=== PATIENT | female | born 1945 | race Caucasian/White ===

== ENCOUNTER → 2017-02-01 | Outpatient (CLI) | payer OTHER, BC ==
[~2017-02-01] MED LIST: AMLO-110 PO; CHOL100010 PO; FLV400 PO; MAGNESIUM PO; ZINC PO; [UNRECOGNIZED DRUG - OTHER] PO; cranberry PO
[2017-02-01 12:20] LABS: CHLORIDE 108 mmol/L (98-107); POTASSIUM 4.4 mmol/L (3.5-5.1); SODIUM 141 mmol/L (136-145)
[2017-02-01 12:57] LABS: ALT/SGPT 30 U/L (12-78); AST/SGOT 21 U/L (15-37); BLOOD UREA NITROGEN 21 mg/dl (7-18); BUN/CREATININE RATIO 19.2 (10-20); CALCIUM 9.2 mg/dl (8.5-10.1); CARBON DIOXIDE 28 mmol/L (21-32); CHOLESTEROL 247 mg/dl (0-200); CHOLESTEROL/HDL RATIO 4.1; GLUCOSE 111 mg/dl (70-99); HDL CHOLESTEROL 60 mg/dl; LDL CHOLESTEROL CALCULATED 150 mg/dl; TRIGLYCERIDES 184 mg/dl (0-150); VERY LOW DENSITY LIPOPROT CALC 37 mg/dl
[2017-02-01 13:10] LABS: ALKALINE PHOSPHATASE 68 U/L (45-117)
[2017-02-01 13:11] LABS: ESTIMATED AVERAGE GLUCOSE 111 mg/dl; HA1C FLAG Normal (Normal)
--- NOTE | 2017-02-07 08:48 | CODING QUERY MEDICAL NECESSITY ---
SUPPORTING DIAGNOSIS NEEDED Dr. Maldonado, A supporting diagnosis is required for the test/procedure performed on this patient in order for us to be reimbursed by the patient's insurance. Please provide a supporting diagnosis for the following test/procedure listed below next to the test name along with your signature. *If there is no additional diagnosis for this patient that would support the following test/procedure please document that below next to the test/procedure. Test(s)/Procedure(s) that require a supporting diagnosis: * ([id number]) VITAMIN D ASSAY DIAGNOSIS: * [id number] GLYCATED HEMOGLOBIN DIAGNOSIS: DATE OF SERVICE: 02/01/17 Provider Signature: Date: Thank you Alexandr Sotomayor Health Information Management Once completed, please kindly fax back to [phone] For questions please call [phone]
== END | disposition home or self-care (01) ==
LOC: C.LABBFT 08:55
PROVIDERS: ATTEND Internal Medicine
DX: M48.00 Spinal stenosis, site unspecified (principal); E55.9 Vitamin D deficiency, unspecified; R73.01 Impaired fasting glucose

== ENCOUNTER → 2017-03-10 | Outpatient (CLI) | payer OTHER, BC ==
--- NOTE | 2017-03-10 13:54 | MAMMOGRAPHY REPORT ---
BILATERAL DIGITAL SCREENING MAMMOGRAM WITH CAD: 03/10/2017 CLINICAL HISTORY: Routine screening. TECHNIQUE: Current study was also evaluated with a Computer Aided Detection (CAD) system. Bilateral CC and MLO views were obtained. COMPARISON: Comparison is made to exams dated: 10/27/2010 mammogram, 10/19/2009 mammogram - [facility], 10/17/2008, 07/04/2007, and 07/01/2005 mammogram - [facility]. BREAST COMPOSITION: There are scattered areas of fibroglandular density in both breasts. FINDINGS: No suspicious masses, calcifications, or areas of architectural distortion are noted in ei ther breast. There has been no significant interval change compared to prior exams. Scattered bilate ral benign-appearing calcifications are again noted. Asymmetry in the right medial posterior breast on the cc view is stable compared to prior exams. IMPRESSION: ACR BI-RADS CATEGORY 2: BENIGN There is no mammographic evidence of malignancy. A 1 year screening mammogram is recommended. The pa tient will receive written notification of the results. Approximately 10% of breast cancers are not detected with mammography. A negative mammographic report should not delay biopsy if a clinically suggestive mass is present. Elizabeth Rhodes M.D. ah/:03/10/2017 12:24:08 Document Design Specialist: Darin KIM(Melvi)(Samara), [facility] letter sent: Normal 1/2 BI-RADS Code: ACR BI-RADS Category 2: Benign
== END | disposition home or self-care (01) ==
LOC: C.MAMM 10:44
PROVIDERS: ATTEND Internal Medicine
DX: Z12.31 Encounter for screening mammogram for malignant neoplasm of breast (principal)

== ENCOUNTER → 2017-04-05 | Outpatient (CLI) | payer OTHER, BC ==
[2017-04-05 12:50] LABS: ALT/SGPT 33 U/L (12-78); AST/SGOT 20 U/L (15-37); BLOOD UREA NITROGEN 12 mg/dl (7-18); BUN/CREATININE RATIO 12.7 (10-20); CALCIUM 8.9 mg/dl (8.5-10.1); CARBON DIOXIDE 27 mmol/L (21-32); CHLORIDE 109 mmol/L (98-107); CHOLESTEROL 173 mg/dl (0-200); CREATININE 0.97 mg/dl (0.60-1.20); GLUCOSE 109 mg/dl (70-99); POTASSIUM 4.4 mmol/L (3.5-5.1); SODIUM 141 mmol/L (136-145)
[2017-04-05 12:51] LABS: ALKALINE PHOSPHATASE 66 U/L (45-117); HDL CHOLESTEROL 57 mg/dl; LDL CHOLESTEROL CALCULATED 89 mg/dl; TRIGLYCERIDES 137 mg/dl (0-150); VERY LOW DENSITY LIPOPROT CALC 27 mg/dl
== END | disposition home or self-care (01) ==
LOC: C.LABBFT 07:57
PROVIDERS: ATTEND Internal Medicine
DX: E78.5 Hyperlipidemia, unspecified (principal)

== ENCOUNTER → 2018-01-03 | Outpatient (CLI) | payer OTHER, BC ==
[2018-01-03 13:11] LABS: BASO % 0.3 %; BASO ABS # 0.02 K/uL (0-0.2); EOS % 1.5 %; EOS ABS # 0.11 K/uL (0-0.5); HEMATOCRIT 43.4 % (37-47); HEMOGLOBIN 15.1 g/dL (12.0-16.0); IG# 0.01 K/uL (0.00-0.02); LYMPH % 33.4 %; LYMPH ABS # 2.44 K/uL (1.2-3.4); MEAN CELL VOLUME 88.2 fL (80-100); MEAN CORPUSCULAR HEMOGLOBIN 30.7 pg (25-34); MEAN CORPUSCULAR HGB CONC 34.8 g/dl (32-36); MEAN PLATELET VOLUME 10.2 fL (7.4-10.4); MONO ABS # 0.51 K/uL (0.11-0.59); NEUT % 57.7 %; NEUT ABS # 4.21 K/uL (1.4-6.5); PLATELET COUNT 287 K/uL (130-400); RED CELL DISTRIBUTION WIDTH CV 12.9 % (11.5-14.5); RED CELL DISTRIBUTION WIDTH SD 41.5 fL (36.4-46.3)
[2018-01-03 13:25] LABS: BLOOD UREA NITROGEN 17 mg/dl (7-18); CALCIUM 9.2 mg/dl (8.5-10.1); CARBON DIOXIDE 27 mmol/L (21-32); CREATININE 0.98 mg/dl (0.60-1.20); GLUCOSE 99 mg/dl (70-99); POTASSIUM 4.4 mmol/L (3.5-5.1); SODIUM 138 mmol/L (136-145)
== END | disposition home or self-care (01) ==
LOC: C.LABBC 11:50
PROVIDERS: ATTEND Physician Assistant Medical
DX: R00.1 Bradycardia, unspecified (principal); I10 Essential (primary) hypertension; E55.9 Vitamin D deficiency, unspecified

== ENCOUNTER → 2018-02-05 | Outpatient (CLI) | payer OTHER, BC ==
[2018-02-05 12:38] LABS: HEMOGLOBIN A1C 5.6 % (4.5-5.6)
[2018-02-05 12:40] LABS: ALBUMIN 3.6 gm/dl (3.4-5.0); ALT/SGPT 45 U/L (12-78); AST/SGOT 34 U/L (15-37); BLOOD UREA NITROGEN 18 mg/dl (7-18); CALCIUM 8.6 mg/dl (8.5-10.1); CARBON DIOXIDE 27 mmol/L (21-32); GLUCOSE 109 mg/dl (70-99); POTASSIUM 4.2 mmol/L (3.5-5.1); SODIUM 139 mmol/L (136-145)
[2018-02-05 12:52] LABS: ALKALINE PHOSPHATASE 71 U/L (45-117); CHOLESTEROL 162 mg/dl (0-200); LDL CHOLESTEROL CALCULATED 82 mg/dl; TOTAL PROTEIN 7.5 gm/dl (6.4-8.2)
== END | disposition home or self-care (01) ==
LOC: C.LABBFT 07:43
PROVIDERS: ATTEND Internal Medicine
DX: E55.9 Vitamin D deficiency, unspecified (principal); E78.5 Hyperlipidemia, unspecified; K76.0 Fatty (change of) liver, not elsewhere classified; R73.01 Impaired fasting glucose; I10 Essential (primary) hypertension

== ENCOUNTER 2024-03-21 04:40 | Inpatient (IN) ==
--- NOTE | 2024-03-21 04:49 | Emergency Department Note ---
History of Present Illness General Chief complaint: Fall Stated complaint: FALL History of Present Illness This 78-year-old female presents to the ER for mechanical fall. Patient tripped over the dog and landed on her back. Patient complains of low back pain. Patient denies head injury, neck pain, chest pain, dyspnea, abdominal pain, numbness, tingling, localized weakness, arm pain or leg pain. No other concerns per patient. No blood thinners. Home Medications Medication Instructions Recorded Confirmed Type cholecalciferol (vitamin D3) 125 5,000 units PO DAILY 08/06/19 03/21/24 History mcg (5,000 unit) tablet methylcellulose (with sugar) oral 1 tbs PO DAILY 08/06/19 03/21/24 History powder (Citrucel (sucrose) oral powder) polyethylene glycol 3350 17 gram 17 gm PO DAILY 08/06/19 03/21/24 History oral powder packet (Miralax) amlodipine 5 mg tablet 5 mg PO DAILY #90 tabs 11/22/23 03/21/24 Rx Allergies Allergy/AdvReac Type Severity Reaction Status Date / Time almond Allergy Severe THROAT Verified 11/14/23 13:34 CLOSES COVID-19 (SARS-CoV-2) Allergy Severe Verified 11/14/23 13:34 vaccine, alexis Iodinated Contrast Media Allergy Severe THROAT Verified 11/14/23 13:34 CLOSES Penicillins Allergy Intermediate Hives Verified 11/14/23 13:34 Sulfa (Sulfonamide Allergy Intermediate Hives Verified 11/14/23 13:34 Antibiotics) ciprofloxacin Allergy Unknown CAN'T Verified 11/14/23 13:34 REMEMBER ramipril Allergy Unknown CAN'T Verified 11/14/23 13:34 REMEMBER alendronate sodium AdvReac Intermediate abdominal Verified 11/14/23 13:34 pain, fever, [place] escitalopram [From Lexapro] AdvReac Intermediate INVOLUNTARY Verified 11/14/23 13:34 MUSCLE SPASMS losartan AdvReac Intermediate GI upset Verified 11/14/23 13:34 Kxyjknt-KBN-UvU Reductase AdvReac Intermediate MUSCLE Verified 11/14/23 13:34 Inhibitor PAIN/CRAMPS [Khweknx-Dem-Rge Reductase Inhibitor] SC[place]CH P[place] SAP Allergy Intermediate SWELLING Uncoded 11/14/23 13:34 AT SITE OF PINE NEEDLE PRICK. covid vaccines AdvReac Severe Uncoded 11/14/23 13:34 Past Med/Surg History Problem List (Updated 03/21/24 @ 18:44 by Dimitry Lopez) Ambulatory dysfunction Closed L2 vertebral fracture (Acute ~03/21/24) From a fall Acute low back pain (Acute) Fall (Acute) Closed L2 vertebral fracture (Acute 03/21/24) from a fall Hypertriglyceridemia Mild tricuspid regurgitation Mild mitral regurgitation Sinus bradycardia Premature supraventricular beats PVC (premature ventricular contraction) Oral alendronate causing adverse effect in therapeutic use History of colon polyps Osteoporosis, unspecified HTN (hypertension) (Chronic) Hyperlipidemia (Chronic) Impaired fasting glucose (Chronic) Irritable bowel syndrome with constipation (Chronic) Vitamin D insufficiency (Chronic) Osteoarthritis of right knee Plica syndrome of knee Adult situational stress disorder Medical History Nonsustained supraventricular tachycardia Benign colonic polyp Gallbladder polyp Mitral valve prolapse syndrome Rosacea Spinal stenosis Nonalcoholic fatty liver disease Mitral valve disorder History of femur fracture History of endometrial biopsy Surgical History History of reduction of open fracture History of colonoscopy History of section Family History Father Coronary heart disease Brother Dyslipidemia Prostate cancer Supraventricular tachycardia Denies family history of Ovarian cancer Myocardial infarction Breast cancer Lung cancer Colorectal cancer Social History Smoking Status: Never smoker Second Hand Exposure: Yes; Do You Dip or Chew Tobacco: No; Hx Alcohol Use: No Hx Substance Use: No Preferred Language: Australian Communication Ability: Effective Visual Impairment: Limited Hearing Ability: Normal [place] Required: No Beliefs That Will Affect Care: None marital status: Current Living Situation: Family current occupational status: retired How many Children do You have: 2 Other Information That Helps Us Care for You: No Feels Safe at Home: Yes Childhood Exposure to Second-Hand Smoke: Yes caffeine: Yes Dental Care, Regularly: Yes Physical Activity Frequency: 3-4 Times per Week Seatbelt Use: always Sunscreen Use: No Assistive Devices: Glasses Review of Systems A total of 10 systems reviewed and were otherwise negative Physical Exam Vital Signs Vital Signs - 24 hr 03/21/24 04:47 03/21/24 05:56 03/21/24 10:45 Temperature 36.4 C L Temperature Source Oral Oral Pulse Rate 53 L Pulse Rate [Left Finger] 55 L 57 L Respiratory Rate 18 18 16 Respiratory Effort / Characteristics Non-Labored Spontaneous Non-Labored Spontaneous Non-Labored Spontaneous Respiratory Depth Normal Normal Normal Respiratory Pattern Regular Regular Regular Blood Pressure 174/91 H Blood Pressure [Right Arm] 152/82 H 172/74 H Blood Pressure Mean 118 Blood Pressure Mean [Right Arm] 105 106 Blood Pressure Position Lying Blood Pressure Position [Right Arm] Lying Pulse Oximetry 99 97 94 Oxygen Delivery Method Room Air Room Air Room Air Sepsis Recent Fever Within 48 Hours No Sepsis New/Unexplained Change in Mental Status N/A Sepsis Action Taken by Nursing No Action Required 03/21/24 12:00 03/21/24 14:00 Temperature Temperature Source Pulse Rate Pulse Rate [Left Finger] 50 L 57 L Respiratory Rate 16 16 Respiratory Effort / Characteristics Non-Labored Spontaneous Non-Labored Spontaneous Respiratory Depth Normal Normal Respiratory Pattern Regular Regular Blood Pressure Blood Pressure [Right Arm] 125/65 156/87 H Blood Pressure Mean Blood Pressure Mean [Right Arm] 85 110 Blood Pressure Position Blood Pressure Position [Right Arm] Pulse Oximetry 93 92 Oxygen Delivery Method Room Air Room Air Sepsis Recent Fever Within 48 Hours Sepsis New/Unexplained Change in Mental Status Sepsis Action Taken by Nursing PHYSICAL EXAM: VITALS: Vitals are noted on the nurse's note and reviewed by myself. Vital signs stable. GENERAL: Pleasant elderly female, in no acute distress, nondiaphoretic, well- developed well-nourished. SKIN: The skin was without obvious lacerations or abrasions. Capillary reflex less than 2 seconds. HEAD: Normocephalic atraumatic. EARS: External auditory canals clear, tympanic membranes pearly [place] without erythema or effusion bilaterally. No hemotympanums. No anderson sign. No mastoid tenderness. EYES: Pupils equal round and reactive to light and accommodation. Conjunctivae without injection, sclerae without icterus. Extraocular movements intact. NOSE: Patent, turbinates without inflammation or discharge. MOUTH: Mucous membranes moist. Pharynx without erythema or exudate. Uvula midline. Airway patent. Tongue does not deviate. NECK: Supple without nuchal rigidity. Cervical spine is nontender. Full range of motion of the neck without tenderness. No JVD. HEART: Regular rate and rhythm LUNGS: Clear to auscultation bilaterally without wheezes, rales or rhonchi. No dullness to percussion. No retractions or accessory muscle use. No chest wall tenderness. ABDOMEN: Positive bowel sounds x 4. Normal tympanic percussion. Soft, nontender, without masses or organomegaly. No guarding or rebound tenderness. MUSCULOSKELETAL: No tenderness of the thoracic spine tenderness. Mid lumbar tenderness without step-offs. No tenderness with pelvic rocking. Full range of motion without tenderness to palpation in all extremities. Strength 5/5 throughout. NEURO: Patient was alert and oriented to person place and time. Normal sensation to light and sharp touch. No focal neurological deficits. Course Administered Medications Acetaminophen (Acetaminophen 500 Mg Tab) 1,000 mg PO Q8H PADDY Stop: 04/20/24 22:29 Last Admin: 03/21/24 21:33 Dose: 1,000 mg Documented By: DANK Lactated Ringer's (Lr) 1,000 mls @ 100 mls/hr IV .Q10H PADDY Stop: 03/22/24 10:59 Last Admin: 03/21/24 15:05 Dose: 100 mls/hr Documented By: VICKIE Miscellaneous (Remove Lidoderm Patch) 1 each N/A DAILY@2100 PADDY Stop: 04/20/24 20:59 Last Admin: 03/21/24 21:33 Dose: 1 each Documented By: DANK Discontinued Medications Acetaminophen (Acetaminophen 500 Mg Tab) 1,000 mg PO NOW STA Stop: 03/21/24 04:44 Last Admin: 03/21/24 05:07 Dose: 1,000 mg Documented By: Acetaminophen (Acetaminophen 500 Mg Tab) 1,000 mg PO Q8H PADDY Stop: 04/20/24 12:59 Last Admin: 03/21/24 14:08 Dose: Not Given Documented By: VICKIE Hydromorphone HCl (Hydromorphone Inj 0.5 Mg/0.5 Ml Syr) 0.5 mg IV NOW STA Stop: 03/21/24 15:22 Last Admin: 03/21/24 16:21 Dose: 0.5 mg Documented By: VICKIE Acetaminophen (Ofirmev) 1,000 mg in 100 mls @ 400 mls/hr IV NOW STA Stop: 03/21/24 15:18 Last Infusion: 03/21/24 15:33 Dose: Infused Documented By: Admin: 03/21/24 15:18 Dose: 400 mls/hr Documented By: VICKIE Ketorolac Tromethamine (Ketorolac Tromethamine 60 Mg/2 Ml Vial) 30 mg IM NOW STA Stop: 03/21/24 05:45 Last Admin: 03/21/24 05:51 Dose: 30 mg Documented By: Lidocaine (Lidocaine 5% 1 Patch) 1 patch TD NOW STA Stop: 03/21/24 14:56 Last Admin: 03/21/24 18:51 Dose: 1 patch Documented By: PAUL Lidocaine (Lidocaine 5% 1 Patch) Confirm Administered Dose 1 patch TD .STK-MED ONE Stop: 03/21/24 15:02 Last Admin: 03/21/24 15:13 Dose: Not Given Documented By: VICKIE Ondansetron HCl (Ondansetron Inj 2 Mg/Ml 2 Ml Vial) 4 mg IV NOW STA Stop: 03/21/24 18:50 Last Admin: 03/21/24 19:39 Dose: 4 mg Documented By: DANK Oxycodone HCl (Oxycodone Hcl Soln 5 Mg/5 Ml Udc) 5 mg PO NOW STA Stop: 03/21/24 05:16 Last Admin: 03/21/24 05:30 Dose: 5 mg Documented By: Medical Decision Making Medical Records Attestation: I reviewed the patient's medical records. Home Medications Current Medication List: was personally reviewed by me Laboratory Data 03/21/24 15:05 03/21/24 15:05 Lab Results 03/21/24 Range/Units 15:05 WBC 10.74 (4.8-10.8) K/ul RBC 4.71 (4.20-5.40) M/uL Hgb 14.2 (12.0-16.0) g/dl Hct 41.2 (37.0-47.0) % MCV 87.5 (80.0-100.0) fL MCH 30.1 (25.0-34.0) pg MCHC 34.5 (32.0-36.0) g/dL RDW Std Deviation 39.6 (36.4-46.3) fL RDW Coeff of Cheryl 12.3 (11.5-14.5) % Plt Count 246 (130-400) K/uL MPV 9.9 (9.4-12.4) fL Immature Gran % (Auto) 1.3 % Neut % (Auto) 78.0 % Lymph % (Auto) 16.3 % [place] % (Auto) 3.9 % Eos % (Auto) 0.3 % Baso % (Auto) 0.2 % Neut # (Auto) 8.38 H (1.40-6.50) K/uL Lymph # (Auto) 1.75 (1.20-3.40) K/uL [place] # (Auto) 0.42 (0.11-0.59) K/uL Eos # (Auto) 0.03 (0.00-0.50) K/uL Baso # (Auto) 0.02 (0.00-0.20) K/uL Immature Gran # (Auto) 0.14 (0.01-0.20) K/uL Sodium 138 (136-145) mmol/L Potassium 3.9 (3.5-5.1) mmol/L Chloride 105 (98-107) mmol/L Carbon Dioxide 26 (21-32) mmol/L Anion Gap 7 (3-11) BUN 13 (6-23) mg/dl Creatinine 0.80 (0.6-1.2) mg/dl Est Cr Clr Drug Dosing 59.7 ml/min Est GFR ( Amer) 80.7 ml/min Est GFR (Non-Af Amer) 69.6 ml/min BUN/Creatinine Ratio 16.3 (10-20) Glucose 104 H (70-99(Fasting)) mg/dl Calcium 9.3 (8.6-10.3) mg/dl Total Bilirubin 1.0 (0.2-1.0) mg/dl AST 25 (13-39) U/L ALT 17 (7-52) U/L Alkaline Phosphatase 76 (34-104) U/L Total Protein 6.9 (6.0-8.3) gm/dl Albumin 4.2 (3.4-5.0) gm/dl Globulin 2.7 (2.5-4.0) gm/dl Albumin/Globulin Ratio 1.6 (0.9-2) Imaging Data Attestation: I personally reviewed and interpreted this imaging study as follows: Radiologist's Impression: Lumbar Spine MRI 03/21/24 15:39 MRI OF THE LUMBAR SPINE WITHOUT IV CONTRAST CLINICAL HISTORY: L2 fracture. Low back pain. COMPARISON STUDY: CT of the lumbar spine was performed on the same day 03/21/2024. TECHNIQUE: MRI of the lumbar spine is performed utilizing various T1 and T2- weighted sequences in the axial and sagittal planes. IV contrast was not administered for this examination. The examination is modestly degraded by motion artifact. FINDINGS: Lumbar spine: Marrow signal intensity is heterogeneous. There is an acute horizontally-oriented fracture through the body of L2 with corresponding marrow edema. There is only minimal loss of height. No retropulsed fragments are identified. Fracture does not clearly involve the posterior cortex or posterior elements. No additional acute fracture is seen involving the lumbar spine. Vertebral body height is otherwise maintained. Alignment is preserved. Anterior and lateral marginal osteophytes are seen throughout. The transverse and spinous processes appear intact. There is no evidence of spondylolysis. Chronic degenerative endplate change is seen at all lumbar levels. There is minimal endplate edema at L3-L4 and L4-L5. No destructive bony lesion is identified. Intravertebral discs: Disc desiccation and loss of height is seen throughout the lumbar spine. Loss of height is moderate at L4-L5 and mild at the remaining lumbar levels. Spinal cord: The visualized spinal cord is normal in morphology and signal intensity. The conus medullaris terminates at the level of T12. The nerve roots of the cauda equina are normal in morphology. L1-L2: There is broad-based posterior disc bulge with annular fissure. This abuts the transiting nerve roots. No significant central canal stenosis is seen. Lateral disc bulge contributes to mild bilateral symmetrical reticular stenosis. In conjunction with facet arthropathy, there is mild left neural foraminal stenosis. The right neural foramen is patent. L2-L3: The central canal is clear. Mild facet arthropathy is of no consequence. The neural foramina are patent. L3-L4: There is minimal posterior disc bulge, which abuts the transiting nerve roots. In conjunction with hypertrophy of the ligamentum flavum, there is mild acquired compromise of the central canal at this level with a minimal AP diameter of 6.5 mm. Lateral disc bulge contributes to bilateral subarticular stenosis and may abut the exiting bilateral L3 nerve roots. In conjunction with facet arthropathy, there is [id number] left neural foraminal stenosis. The right neural foramen is patent. L4-L5: There is broad-based posterior disc bulge with annular fissure. This abuts the transiting nerve roots. There is no significant acquired compromise of the central canal. Lateral disc bulge contributes to bilateral subarticular stenosis and may abut the exiting bilateral L4 nerve roots. In conjunction with facet arthropathy, there is mild right neural foraminal stenosis. Left neural foramen is patent. L5-S1: The central canal is clear. Facet arthropathy is of no consequence. The neural foramina are patent. Sacrum: The visualized sacrum is normal in morphology and signal intensity. Soft tissues: There is mild fatty atrophy of the paraspinous musculature. 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 The retroperitoneal structures are otherwise grossly unremarkable but incompletely evaluated. IMPRESSION: 1. Acute fracture of the L2 vertebral body as above. There is only minimal loss of height, with no clear involvement of the posterior cortex or the posterior elements. There is no retropulsion of fragments. 2. No additional acute fracture is seen. 3. Degenerative disc disease and spondylotic change as above. See discussion for detailed level by level analysis. 4. Additional findings as above. Electronically signed by: Uday Castanon M.D. 03/21/2024 6:56 PM MDM Narrative Prior records/ancillary studies reviewed. Triage Nursing notes reviewed. Additional history obtained from EMS. The patient's history was concerning for traumatic injury Differential diagnosis: Etiologies such as fracture, dislocation, intra-abdominal, pneumothorax, intrathoracic , intracranial, neurologic, as well as other traumatic pathologies were entertained. Physical examination findings: As above. The patients vitals were stable. ER treatment provided: Tylenol p.o., oxycodone, Toradol An order was placed for continuous cardiac monitoring. The monitor shows a rate of 50-100 with a sinus rhythm per my interpretation. On reassessment the patient felt better. Vital signs were stable. Diagnostic interpretation by me: Imaging studies: Imaging as above Consultation: A consultation was placed with hospitalist. The case was discussed and diagnostics were reviewed. The patient was admitted to their service for pain management. This appears to be consistent with fall with nondisplaced L2 fracture. Patient still moderate amount of pain. Medicine was consulted and the case discussed. She will be admitted to the medical service for further evaluation and workup. By the evaluation outlined above emergent etiologies such as dislocation, intra-abdominal, pneumothorax, pulmonary contusion, hemothorax, intracranial, neurologic,as well as others were deemed relatively unlikely. The pt informed about the findings as listed above. All questions were answered and pleased with the treatment. The chart was completed utilizing [employer] Speech voice recognition software. Grammatical errors, random word insertions, pronoun errors, and incomplete sentences are an occassional consequence of this system due to software limitations, ambient noise, and hardware issues. Any formal questions or concerns about the content, text, or information contained within the body of this dictation should be directly addressed to the physician social work assistant for clarification. Attending Attestation: I Elie Diaz MD I have reviewed the advanced practitioner's documentation and agree with the plan of care. I accept the responsibility for the associated risk of managing the patient. Ct imaging reviewed; given pain levels hospitalist team has been contacted. Impression & Plan Closed L2 vertebral fracture, Fall, Acute low back pain Discharge Plan Visit Data Chief Complaint: Fall Stated Complaint: FALL ED Provider: Elie Diaz ED Midlevel Provider: Christen Sumner Discharge Problem: Closed L2 vertebral fracture, Fall, Acute low back pain Patient Disposition: Admitted As Inpatient Condition: Good Discharge Problem: Closed L2 vertebral fracture Qualifiers: Encounter type: initial encounter Fracture morphology: unspecified fracture morphology Qualified Code(s): S32.029A - Unspecified fracture of second lumbar vertebra, initial encounter for closed fracture
[2024-03-21] MEDS: ACETAMINOPHEN 500 MG TAB PO STA (05:07)
[2024-03-21] MEDS: oxyCODONE HCL SOLN 5 MG/5 ML UDC PO STA (05:30)
--- NOTE | 2024-03-21 05:32 | CT Scan Report ---
Exam(s): CT HEAD Without Contrast EXAM: CT Head Without Intravenous Contrast CLINICAL HISTORY: Reason for exam: fall, pain. TECHNIQUE: Axial computed tomography images of the head/brain without intravenous contrast. CTDI is 39.4 mGy and DLP is 3285.17 mGy-cm. Automated exposure control was utilized for the study. A dose lowering technique was utilized adhering to the principles of ALARA. COMPARISON: No relevant prior studies available. FINDINGS: Brain: There are a few areas of decreased attenuation in the deep cerebral white matter consistent with mild small vessel ischemic/degenerative changes. No hemorrhage. Ventricles: Unremarkable. No ventriculomegaly. Bones/joints: Unremarkable. No acute fracture. Soft tissues: Unremarkable. Sinuses: Unremarkable as visualized. No acute sinusitis. Mastoid air cells: Unremarkable as visualized. No mastoid effusion. IMPRESSION: No acute findings in the head/brain. Electronically signed by: Fer Sanchez MD 03/21/24 05:31 AM
--- NOTE | 2024-03-21 05:34 | CT Scan Report ---
Exam(s): CT C SPINE EXAM: CT Cervical Spine Without Intravenous Contrast CLINICAL HISTORY: Reason for exam: fall, pain. TECHNIQUE: Axial computed tomography images of the cervical spine without intravenous contrast. CTDI is 36.79 mGy and DLP is 3285.17 mGy-cm. Automated exposure control was utilized for the study. A dose lowering technique was utilized adhering to the principles of ALARA. COMPARISON: No relevant prior studies available. FINDINGS: Vertebrae: Multilevel spondylotic change with multilevel disc space narrowing. No critical central canal or foraminal stenosis. No cervical spine fracture or focal subluxation is visualized. Discs/spinal canal/neural foramina: See above. Soft tissues: Unremarkable. IMPRESSION: 1. Multilevel spondylotic change with multilevel disc space narrowing. No critical central canal or foraminal stenosis. 2. No cervical spine fracture or focal subluxation is visualized. Electronically signed by: Fer Sanchez MD 03/21/24 05:33 AM
--- NOTE | 2024-03-21 05:37 | CT Scan Report ---
Exam(s): CT T SPINE EXAM: CT Thoracic Spine Without Intravenous Contrast CLINICAL HISTORY: Reason for exam: fall, pain. TECHNIQUE: Axial computed tomography images of the thoracic spine without intravenous contrast. CTDI is 39.4 mGy and DLP is 0.17 mGy-cm. Automated exposure control was utilized for the study. A dose lowering technique was utilized adhering to the principles of ALARA. COMPARISON: No relevant prior studies available. FINDINGS: Vertebrae: Generalized osteopenia and ankylosing spondylitis. No thoracic spine fracture or focal subluxation. Mild thoracic spine dextroscoliosis. Discs/spinal canal/neural foramina: No acute findings. No spinal canal stenosis. Soft tissues: Unremarkable. Thyroid: 10 mm low-density right thyroid nodule incidentally demonstrated. No further follow-up is recommended. IMPRESSION: 1. No thoracic spine fracture or focal subluxation. 2. Generalized osteopenia and ankylosing spondylitis. Electronically signed by: Fer Sanchez MD 03/21/24 05:36 AM
--- NOTE | 2024-03-21 05:41 | CT Scan Report ---
Exam(s): CT L SPINE EXAM: CT Lumbar Spine Without Intravenous Contrast CLINICAL HISTORY: Reason for exam: fall, pain. TECHNIQUE: Axial computed tomography images of the lumbar spine without intravenous contrast. CTDI is 39.4 mGy and DLP is 3285.17 mGy-cm. Automated exposure control was utilized for the study. A dose lowering technique was utilized adhering to the principles of ALARA. COMPARISON: No relevant prior studies available. FINDINGS: Vertebrae: Nondisplaced fracture through the L2 vertebral body is suspected. Recommend further correlation with MRI examination. There is no focal subluxation. Generalized osteopenia. Discs/spinal canal/neural foramina: Severe L4-5 and moderate L5-S1 disc space narrowing. No critical central canal or foraminal stenosis is identified. Soft tissues: Unremarkable. 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 There is also bilateral renal scarring. IMPRESSION: Nondisplaced fracture through the L2 vertebral body is suspected. Recommend further correlation with MRI examination. There is no focal subluxation. Communications: Verify Receipt Electronically signed by: Fer Sanchez MD 03/21/24 05:40 AM
[2024-03-21] MEDS: KETOROLAC TROMETHAMINE 60 MG/2 ML VIAL IM STA (05:51)
[2024-03-21] MEDS ORDERED: oxyCODONE HCL IR 5 MG TAB (IMMEDIATE RELEASE) PO PRN ×3 (06:46→18:49)
[2024-03-21] MEDS ORDERED: POLYETHYLENE (MIRALAX) 17 GM PACK PO PRN (06:46)
[2024-03-21] MEDS: ACETAMINOPHEN 500 MG TAB PO SCH ×2 (14:08→21:33)
--- NOTE | 2024-03-21 14:11 | History & Physical Report ---
Date of Service March 21, 2024 Assessment & Plan (1) Closed L2 vertebral fracture: Plan: Patient sustained a mechanical fall down one step on the morning of 03/21; no head strike; no LOC Head CT without acute abnormality Cervical spine CT without acute fracture or subluxation Thoracic spine CT without acute fracture or subluxation Lumbar spine CT revealed a suspected nondisplaced fracture through the L2 vertebrae Lumbar spine MRI w/o contrast ordered to correlate; if pathological fracture, recommend repeating MRI w/ contrast Multimodal pain regimen: Acetaminophen 1000mg p.o. scheduled q8h Dilaudid 0.5 mg IV q4h as needed for breakthrough pain 46 Dilaudid 1.0 mg IV q4h as needed for breakthrough pain 7-10 Miacalcin NS daily Daily lidocaine patch Heat application with K-pad as needed Can consider adding TLSO brace (pending MRI) Orthopedics consulted, however recommended that the patient be seen by ortho- spine (no coverage this week) Case management consulted for discharge planning as patient will likely require rehab A.m. CBC, BMP (2) Ambulatory dysfunction: Plan: Secondary to #1 PT/OT evaluations appreciated Fall precautions (3) Acute low back pain: Plan: Pain management (as above) (4) HTN (hypertension): Plan: Continue amlodipine daily (5) Fall: Plan Disposition: Admit to [facility] Full code Regular diet VTE PPx: SCDs; hold chemical DVT PPx for 24 hours in the setting of acute fall/ trauma History of Present Illness Chief Complaint: Fall, lower back pain Primary Care Provider: Alexandr Damian DO Patricia is an 78-year-old female with PMH of IBS, HLD, HTN, osteoporosis, adult situational stress disorder, and vitamin D deficiency. Patient presented on the morning of 03/21 after tripping on a step around 4 AM. She struck her hip on a ceramic tile, and endorsed severe lower back pain 10/10 immediately after falling. No head strike. No LOC. Patient was on the ground for approximately 15 minutes prior to EMS arrival. Patient did not take any medications prior to coming into the hospital; no morning medications. She denies any recent falls, or injury/trauma to the back/abdomen/pelvis. She was not feeling dizzy or lightheaded prior to fall. At time of admission, she does endorse 5/10 lower back pain, which he characterizes as a sharp, burning pain. The pain is constant and exacerbated with movements. No radiation down the legs. No numbness or tingling in the lower extremities. Patient denies saddle anest hesia. She reports that as long as she stays supine, the pain is tolerable. She reports that she is able to wiggle her toes, plantar/dorsiflex ankles, and bend the knees bilaterally. No loss of sensation or function of the lower extremities. No sick contacts. She does not use supplemental oxygen at baseline. Patient denies smoking, tobacco use, and recent alcohol use. Patient's son (Uday) is present at the bedside and provides additional history. She is bradycardic around 50 bpm at time of admission; vitals otherwise stable. ED course: Toradol 30 mg IM Oxycodone 10 mg p.o. Acetaminophen 1000 mg p.o. ROS: Patient endorses severe lower back pain that is exacerbated by movements, as well as nausea. Patient denies fever, chills, night-sweats, dizziness/lightheadedness prior to fall, headache, chest pain, chest pressure, chest palpitations, SOB, pleuritic CP, cough, abdominal pain, vomiting, diarrhea, change in urinary bowel habits, burning with urination, blood in the urine or stool, saddle anesthesia, or numbness/tingling/pain in the lower extremities. Allergies Allergy/AdvReac Type Severity Reaction Status Date / Time almond Allergy Severe THROAT Verified 11/14/23 13:34 CLOSES COVID-19 (SARS-CoV-2) Allergy Severe Verified 11/14/23 13:34 vaccine, alexis Iodinated Contrast Media Allergy Severe THROAT Verified 11/14/23 13:34 CLOSES Penicillins Allergy Intermediate Hives Verified 11/14/23 13:34 Sulfa (Sulfonamide Allergy Intermediate Hives Verified 11/14/23 13:34 Antibiotics) ciprofloxacin Allergy Unknown CAN'T Verified 11/14/23 13:34 REMEMBER ramipril Allergy Unknown CAN'T Verified 11/14/23 13:34 REMEMBER alendronate sodium AdvReac Intermediate abdominal Verified 11/14/23 13:34 pain, fever, [place] escitalopram [From Lexapro] AdvReac Intermediate INVOLUNTARY Verified 11/14/23 13:34 MUSCLE SPASMS losartan AdvReac Intermediate GI upset Verified 11/14/23 13:34 Hdxnobt-FOA-KqH Reductase AdvReac Intermediate MUSCLE Verified 11/14/23 13:34 Inhibitor PAIN/CRAMPS [Mlceahk-Cgn-Fcg Reductase Inhibitor] SCOTCH PINE SAP Allergy Intermediate SWELLING Uncoded 11/14/23 13:34 AT SITE OF PINE NEEDLE PRICK. covid vaccines AdvReac Severe Uncoded 11/14/23 13:34 Home Medications Medication Instructions Recorded Confirmed Type cholecalciferol (vitamin D3) 125 5,000 units PO DAILY 08/06/19 03/21/24 History mcg (5,000 unit) tablet methylcellulose (with sugar) oral 1 tbs PO DAILY 08/06/19 03/21/24 History powder (Citrucel (sucrose) oral powder) polyethylene glycol 3350 17 gram 17 gm PO DAILY 08/06/19 03/21/24 History oral powder packet (Miralax) amlodipine 5 mg tablet 5 mg PO DAILY #90 tabs 11/22/23 03/21/24 Rx Past Med/Surg History Problem List (Updated 03/21/24 @ 18:44 by Dimitry Lopez) Ambulatory dysfunction Closed L2 vertebral fracture (Acute ~03/21/24) From a fall Acute low back pain (Acute) Fall (Acute) Closed L2 vertebral fracture (Acute 03/21/24) from a fall Hypertriglyceridemia Mild tricuspid regurgitation Mild mitral regurgitation Sinus bradycardia Premature supraventricular beats PVC (premature ventricular contraction) Oral alendronate causing adverse effect in therapeutic use History of colon polyps Osteoporosis, unspecified HTN (hypertension) (Chronic) Hyperlipidemia (Chronic) Impaired fasting glucose (Chronic) Irritable bowel syndrome with constipation (Chronic) Vitamin D insufficiency (Chronic) Osteoarthritis of right knee Plica syndrome of knee Adult situational stress disorder Medical History Nonsustained supraventricular tachycardia Benign colonic polyp Gallbladder polyp Mitral valve prolapse syndrome Rosacea Spinal stenosis Nonalcoholic fatty liver disease Mitral valve disorder History of femur fracture History of endometrial biopsy Surgical History History of reduction of open fracture History of colonoscopy History of section Family History Father Coronary heart disease Brother Dyslipidemia Prostate cancer Supraventricular tachycardia Denies family history of Ovarian cancer Myocardial infarction Breast cancer Lung cancer Colorectal cancer Social History Smoking Status: Never smoker Second Hand Exposure: Yes; Do You Dip or Chew Tobacco: No; Hx Alcohol Use: No (mixed drik) Hx Substance Use: No Preferred Language: Swedish Visual Impairment: Limited Hearing Ability: Normal marital status: Current Living Situation: Family current occupational status: retired How many Children do You have: 2 Feels Safe at Home: Yes Childhood Exposure to Second-Hand Smoke: Yes caffeine: Yes Dental Care, Regularly: Yes Physical Activity Frequency: 3-4 Times per Week Seatbelt Use: always Sunscreen Use: No Assistive Devices: Glasses Review of Systems Review of Systems: See HPI above Physical Exam Physical Exam: General: no acute distress; anxious; non-toxic appearing; frail appearing; cooperative; SpO2 93 percent on RA HEENT: normocephalic, atraumatic; no scleral icterus; PERRLA; moist mucus membrane; vision and hearing grossly intact Neck: supple; no lymphadenopathy; trachea midline; patient demonstrates ability to shrug shoulders against resistance and rotate neck [id number] without pain/dizziness Skin: warm, dry without signs of tenting; no cyanosis; no rashes, bruising, lesions, or erythema noted CV: chest wall NTP; RRR; S1/S2 normal; no murmurs/rubs/gallops; pulses intact and symmetric at radial, DP, and PT Lungs: no acute respiratory distress; symmetrical chest wall expansion; clear breath sounds across all lung doss w/o adventitious sounds; no wheezing ABD: Soft, NTP; BS present; no rebound/guarding; no distention; no signs of bruising or active bleeding on the abdomen or flanks Back: Suboptimal exam; patient declines rolling at this time as she reports it is too painful and would like to have MRI done first; left and right hips are NTP; back to be examined post MRI MSK: no tics or fasciculations; no edema noted in the LEs b/l, nonerythematous; patient demonstrates ability to wiggle toes, plantarflex, and dorsiflex bilaterally against resistance without difficulty; she is able to bend both knees, but this does exacerbate pain; (+) straight leg lift bilaterally Neuro: A&Ox3; normal mood and affect; fluent speech; no focal deficits; sensation grossly intact and symmetric in the LEs b/l assessed via light touch; patient's feet are neurovascular intact assessed at DP/PT Results & Data Results & Data Vital Signs (Past 12 Hours) Vital Signs Temp Pulse Pulse Resp BP BP Pulse Ox 03/21/24 12:00 50 L 16 125/65 93 03/21/24 10:45 57 L 16 172/74 H 94 03/21/24 05:56 55 L 18 152/82 H 97 03/21/24 04:47 36.4 C L 53 L 18 174/91 H 99 O2 Del Method 03/21/24 12:00 Room Air 03/21/24 10:45 Room Air 03/21/24 05:56 Room Air 03/21/24 04:47 Room Air Diagnostic Findings Cervical Spine CT 03/21/24 04:43 Exam(s): CT C SPINE EXAM: CT Cervical Spine Without Intravenous Contrast CLINICAL HISTORY: Reason for exam: fall, pain. TECHNIQUE: Axial computed tomography images of the cervical spine without intravenous contrast. CTDI is 36.79 mGy and DLP is 3285.17 mGy-cm. Automated exposure control was utilized for the study. A dose lowering technique was utilized adhering to the principles of ALARA. COMPARISON: No relevant prior studies available. FINDINGS: Vertebrae: Multilevel spondylotic change with multilevel disc space narrowing. No critical central canal or foraminal stenosis. No cervical spine fracture or focal subluxation is visualized. Discs/spinal canal/neural foramina: See above. Soft tissues: Unremarkable. IMPRESSION: 1. Multilevel spondylotic change with multilevel disc space narrowing. No critical central canal or foraminal stenosis. 2. No cervical spine fracture or focal subluxation is visualized. Electronically signed by: Fer Sanchez MD 03/21/24 05:[address] 03/21/24 04:43 Exam(s): CT HEAD Without Contrast EXAM: CT Head Without Intravenous Contrast CLINICAL HISTORY: Reason for exam: fall, pain. TECHNIQUE: Axial computed tomography images of the head/brain without intravenous contrast. CTDI is 39.4 mGy and DLP is 3285.17 mGy-cm. Automated exposure control was utilized for the study. A dose lowering technique was utilized adhering to the principles of ALARA. COMPARISON: No relevant prior studies available. FINDINGS: Brain: There are a few areas of decreased attenuation in the deep cerebral white matter consistent with mild small vessel ischemic/degenerative changes. No hemorrhage. Ventricles: Unremarkable. No ventriculomegaly. Bones/joints: Unremarkable. No acute fracture. Soft tissues: Unremarkable. Sinuses: Unremarkable as visualized. No acute sinusitis. Mastoid air cells: Unremarkable as visualized. No mastoid effusion. IMPRESSION: No acute findings in the head/brain. Electronically signed by: Fer Sanchez MD 03/21/24 05:[address] 03/21/24 04:43 CR Exam(s): CT L SPINE EXAM: CT Lumbar Spine Without Intravenous Contrast CLINICAL HISTORY: Reason for exam: fall, pain. TECHNIQUE: Axial computed tomography images of the lumbar spine without intravenous contrast. CTDI is 39.4 mGy and DLP is 3285.17 mGy-cm. Automated exposure control was utilized for the study. A dose lowering technique was utilized adhering to the principles of ALARA. COMPARISON: No relevant prior studies available. FINDINGS: Vertebrae: Nondisplaced fracture through the L2 vertebral body is suspected. Recommend further correlation with MRI examination. There is no focal subluxation. Generalized osteopenia. Discs/spinal canal/neural foramina: Severe L4-5 and moderate L5-S1 disc space narrowing. No critical central canal or foraminal stenosis is identified. Soft tissues: Unremarkable. 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 There is also bilateral renal scarring. IMPRESSION: Nondisplaced fracture through the L2 vertebral body is suspected. Recommend further correlation with MRI examination. There is no focal subluxation. Communications: Verify Receipt Electronically signed by: Fer Sanchez MD 03/21/24 05:[address] 03/21/24 04:43 Exam(s): CT T SPINE EXAM: CT Thoracic Spine Without Intravenous Contrast CLINICAL HISTORY: Reason for exam: fall, pain. TECHNIQUE: Axial computed tomography images of the thoracic spine without intravenous contrast. CTDI is 39.4 mGy and DLP is 0.17 mGy-cm. Automated exposure control was utilized for the study. A dose lowering technique was utilized adhering to the principles of ALARA. COMPARISON: No relevant prior studies available. FINDINGS: Vertebrae: Generalized osteopenia and ankylosing spondylitis. No thoracic spine fracture or focal subluxation. Mild thoracic spine dextroscoliosis. Discs/spinal canal/neural foramina: No acute findings. No spinal canal stenosis. Soft tissues: Unremarkable. Thyroid: 10 mm low-density right thyroid nodule incidentally demonstrated. No further follow-up is recommended. IMPRESSION: 1. No thoracic spine fracture or focal subluxation. 2. Generalized osteopenia and ankylosing spondylitis. Electronically signed by: Fer Sanchez MD 03/21/24 05:36 AM Code Status & VTE Plan Code Status Full code VTE Prophylaxis Plan VTE Prophylaxis will be ordered: Yes Supervising Physician Co-Signing Physician Notes Patient was seen and examined independently I discussed the case with MOHSEN Monique PAC I reviewed pertinent past medical social family history and also the plan of care and agree with the plan of care. Patient mechanical fall and has low back pain. This is at the site of previous facet pain that she had. Patient does have occasional radiation of pain with muscle spasms in her legs but no pain at rest. No pain with straight leg raising. CT scan confirms a nondisplaced L2 compression fracture patient recently was discussed to start on Reclast for osteoporosis by her primary care physician There was a delay in admission of this patient as there was some miscommunication regarding her plan of care shift change this morning at 7 AM. As the morning wore on we eventually looked into the patient's care and Osmany Monique did go see the patient at that point in time family was displeased with delay of admission. Patient is pending MRI scan at this time when I did evaluate her in the ER pain was 5 out of 10 there is no radicular component she seemed content with the plan of care and she will be transferred upstairs with Multimodal pain control and plan for PT OT mobilization. Any exceptions will be noted below PG Care Time/CCT Total # of Minutes Spent Total Time Spent with Patient: Total time spent is greater than 50% in coordination of care (as documented) at patient's floor/unit and/or counseling patient: [place] [address] INT INP/OBS CARE 3/75MIN Patient Type New History Comprehensive Exam Comprehensive Medical Decision Making Moderate Complexity Diagnoses Closed L2 vertebral fracture S32.029A Ambulatory dysfunction R26.2 Acute low back pain M54.50 HTN (hypertension) I10 Fall W19.XXXA
[2024-03-21] MEDS: LACTATED RINGER'S 1,000 ML IV SCH (15:05)
[2024-03-21] MEDS: LIDOCAINE 5% 1 PATCH TD ONE (15:13)
[2024-03-21] MEDS: ACETAMINOPHEN 1,000 MG/100 ML VIAL IV STA (15:18)
[2024-03-21 15:33] LABS: Basophils # (auto) 0.02 K/uL (0.00-0.20); Basophils % (auto) 0.2 %; Eosinophils # (auto) 0.03 K/uL (0.00-0.50); Eosinophils % (auto) 0.3 %; Hematocrit (blood only) 41.2 % (37.0-47.0); Hemoglobin 14.2 g/dl (12.0-16.0); Immature Granulocytes # (auto) 0.14 K/uL (0.01-0.20); Immature Granulocytes % (auto) 1.3 %; Lymphocytes # (auto) 1.75 K/uL (1.20-3.40); Lymphocytes % (auto) 16.3 %; Mean Corpuscular Hemoglobin 30.1 pg (25.0-34.0); Mean Corpuscular Hgb Conc 34.5 g/dL (32.0-36.0); Mean Corpuscular Volume 87.5 fL (80.0-100.0); Mean Platelet Volume 9.9 fL (9.4-12.4); Monocytes # (auto) 0.42 K/uL (0.11-0.59); Monocytes % (auto) 3.9 %; Neutrophils # (auto) 8.38 K/uL (1.40-6.50); Platelet Count 246 K/uL (130-400); RDW Coefficient of Variation 12.3 % (11.5-14.5); RDW Standard Deviation 39.6 fL (36.4-46.3); Red Blood Count 4.71 M/uL (4.20-5.40); White Blood Count 10.74 K/ul (4.8-10.8)
[2024-03-21] MEDS: HYDROmorphone INJ 0.5 MG/0.5 ML SYR IV STA (16:21)
[2024-03-21 16:31] LABS: Albumin Globulin Ratio 1.6 (0.9-2); Albumin Level 4.2 gm/dl (3.4-5.0); BUN Creatinine Ratio 16.3 (10-20); Calcium 9.3 mg/dl (8.6-10.3); Creatinine Clr Calc Pharmacy 59.7 ml/min; Est GFR (African American) 80.7 ml/min; Est GFR (Non-African American) 69.6 ml/min; Globulin 2.7 gm/dl (2.5-4.0); Potassium 3.9 mmol/L (3.5-5.1); Total Protein 6.9 gm/dl (6.0-8.3)
[2024-03-21] MEDS ORDERED: MELATONIN 3 MG TAB PO PRN (18:49)
[2024-03-21] MEDS ORDERED: HYDROmorphone INJ 1 MG/ML SYRINGE IV PRN (18:50)
[2024-03-21] MEDS ORDERED: HYDROmorphone INJ 0.5 MG/0.5 ML SYR IV PRN (18:50)
[2024-03-21] MEDS: LIDOCAINE 5% 1 PATCH TD STA (18:51)
--- NOTE | 2024-03-21 18:58 | Magnetic Resonance Report ---
MRI OF THE LUMBAR SPINE WITHOUT IV CONTRAST CLINICAL HISTORY: L2 fracture. Low back pain. COMPARISON STUDY: CT of the lumbar spine was performed on the same day 03/21/2024. TECHNIQUE: MRI of the lumbar spine is performed utilizing various T1 and T2-weighted sequences in the axial and sagittal planes. IV contrast was not administered for this examination. The examination is modestly degraded by motion artifact. FINDINGS: Lumbar spine: Marrow signal intensity is heterogeneous. There is an acute horizontally-oriented fract ure through the body of L2 with corresponding marrow edema. There is only minimal loss of height. No retropulsed fragments are identified. Fracture does not clearly involve the posterior cortex or poste rior elements. No additional acute fracture is seen involving the lumbar spine. Vertebral body height is otherwise maintained. Alignment is preserved. Anterior and lateral marginal osteophytes are seen throughout. The transverse and spinous processes appear intact. There is no evidence of spondylolysis . Chronic degenerative endplate change is seen at all lumbar levels. There is minimal endplate edema at L3-L4 and L4-L5. No destructive bony lesion is identified. Intravertebral discs: Disc desiccation and loss of height is seen throughout the lumbar spine. Loss o f height is moderate at L4-L5 and mild at the remaining lumbar levels. Spinal cord: The visualized spinal cord is normal in morphology and signal intensity. The conus medul monica terminates at the level of T12. The nerve roots of the cauda equina are normal in morphology. L1-L2: There is broad-based posterior disc bulge with annular fissure. This abuts the transiting nerv e roots. No significant central canal stenosis is seen. Lateral disc bulge contributes to mild bilate ral symmetrical reticular stenosis. In conjunction with facet arthropathy, there is mild left neural foraminal stenosis. The right neural foramen is patent. L2-L3: The central canal is clear. Mild facet arthropathy is of no consequence. The neural foramina a re patent. L3-L4: There is minimal posterior disc bulge, which abuts the transiting nerve roots. In conjunction with hypertrophy of the ligamentum flavum, there is mild acquired compromise of the central canal at this level with a minimal AP diameter of 6.5 mm. Lateral disc bulge contributes to bilateral subartic ular stenosis and may abut the exiting bilateral L3 nerve roots. In conjunction with facet arthropath y, there is [id number] left neural foraminal stenosis. The right neural foramen is patent. L4-L5: There is broad-based posterior disc bulge with annular fissure. This abuts the transiting nerv e roots. There is no significant acquired compromise of the central canal. Lateral disc bulge contrib utes to bilateral subarticular stenosis and may abut the exiting bilateral L4 nerve roots. In conjunc tion with facet arthropathy, there is mild right neural foraminal stenosis. Left neural foramen is pa tent. L5-S1: The central canal is clear. Facet arthropathy is of no consequence. The neural foramina are pa tent. Sacrum: The visualized sacrum is normal in morphology and signal intensity. Soft tissues: There is mild fatty atrophy of the paraspinous musculature. 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 The retroperitoneal structures are otherwise grossly unremarkable but inco mpletely evaluated. IMPRESSION: 1. Acute fracture of the L2 vertebral body as above. There is only minimal loss of height, with no cl ear involvement of the posterior cortex or the posterior elements. There is no retropulsion of fragme nts. 2. No additional acute fracture is seen. 3. Degenerative disc disease and spondylotic change as above. See discussion for detailed level by le ariana analysis. 4. Additional findings as above. Electronically signed by: Uday Castanon M.D. 03/21/2024 6:56 PM
[2024-03-21] MEDS: ONDANSETRON INJ 2 MG/ML 2 ML VIAL IV STA (19:39)
[2024-03-22 08:19] LABS: Basophils # (auto) 0.02 K/uL (0.00-0.20); Basophils % (auto) 0.2 %; Eosinophils # (auto) 0.13 K/uL (0.00-0.50); Eosinophils % (auto) 1.6 %; Hemoglobin 12.6 g/dl (12.0-16.0); Immature Granulocytes # (auto) 0.04 K/uL (0.01-0.20); Immature Granulocytes % (auto) 0.5 %; Lymphocytes # (auto) 1.41 K/uL (1.20-3.40); Lymphocytes % (auto) 17.4 %; Mean Corpuscular Hemoglobin 30.1 pg (25.0-34.0); Mean Corpuscular Hgb Conc 34.1 g/dL (32.0-36.0); Mean Corpuscular Volume 88.3 fL (80.0-100.0); Mean Platelet Volume 10.1 fL (9.4-12.4); Monocytes # (auto) 0.55 K/uL (0.11-0.59); Monocytes % (auto) 6.8 %; Neutrophils # (auto) 5.95 K/uL (1.40-6.50); Neutrophils % (auto) 73.5 %; Platelet Count 202 K/uL (130-400); RDW Coefficient of Variation 12.3 % (11.5-14.5); RDW Standard Deviation 39.6 fL (36.4-46.3); Red Blood Count 4.19 M/uL (4.20-5.40)
[2024-03-22 08:38] LABS: BUN Creatinine Ratio 14.7 (10-20); Calcium 8.8 mg/dl (8.6-10.3); Creatinine Clr Calc Pharmacy 63.7 ml/min; Est GFR (African American) 87.3 ml/min; Est GFR (Non-African American) 75.3 ml/min; Potassium 3.9 mmol/L (3.5-5.1)
[2024-03-22] MEDS: LIDOCAINE 5% 1 PATCH TD SCH (08:48)
[2024-03-22] MEDS: amLODIPine BESYLATE 5 MG TAB PO SCH (08:48)
[2024-03-22] MEDS: POLYETHYLENE (MIRALAX) 17 GM PACK PO SCH (08:48)
[2024-03-22] MEDS: CALCITONIN SALMON NA 200 IU/AC 3.7 ML BTL NAE SCH (08:48)
--- NOTE | 2024-03-22 09:20 | Orthopedic Consultation ---
Date of Consultation March 22, 2024 Assessment & Plan (1) Closed L2 vertebral fracture: Assessment L2 compression fracture. Plan at this time I discussed with patient regarding her fracture and treatment plan. Emphasized majority his fractures heal on their own without surgical intervention. I have ordered a TLSO brace which she will wear when she is out of bed and began ambulating. She understands and agrees. History of Present Illness Reason for Consultation: L2 compression fracture Attending Physician: Mike Marquez MD History of Present Illness This is an 78-year-old female that presents after fall at home with diagnosis of acute L2 compression fracture. This morning she states her pain is controlled at rest. She denies any numbness or tingling lower extremities. Denies any lower extremity weakness. Allergies Allergy/AdvReac Type Severity Reaction Status Date / Time almond Allergy Severe THROAT Verified 11/14/23 13:34 CLOSES COVID-19 (SARS-CoV-2) Allergy Severe Verified 11/14/23 13:34 vaccine, alexis Iodinated Contrast Media Allergy Severe THROAT Verified 11/14/23 13:34 CLOSES Penicillins Allergy Intermediate Hives Verified 11/14/23 13:34 Sulfa (Sulfonamide Allergy Intermediate Hives Verified 11/14/23 13:34 Antibiotics) ciprofloxacin Allergy Unknown CAN'T Verified 11/14/23 13:34 REMEMBER ramipril Allergy Unknown CAN'T Verified 11/14/23 13:34 REMEMBER alendronate sodium AdvReac Intermediate abdominal Verified 11/14/23 13:34 pain, fever, LAWRENCE escitalopram [From Lexapro] AdvReac Intermediate INVOLUNTARY Verified 11/14/23 13:34 MUSCLE SPASMS losartan AdvReac Intermediate GI upset Verified 11/14/23 13:34 Jxtloal-ZGA-OzX Reductase AdvReac Intermediate MUSCLE Verified 11/14/23 13:34 Inhibitor PAIN/CRAMPS [Lwezlpd-Iup-Xqt Reductase Inhibitor] SCOTCH P[place] SAP Allergy Intermediate SWELLING Uncoded 11/14/23 13:34 AT SITE OF PINE NEEDLE PRICK. covid vaccines AdvReac Severe Uncoded 11/14/23 13:34 Home Medications Medication Instructions Recorded Confirmed Type cholecalciferol (vitamin D3) 125 5,000 units PO DAILY 08/06/19 03/21/24 History mcg (5,000 unit) tablet methylcellulose (with sugar) oral 1 tbs PO DAILY 08/06/19 03/21/24 History powder (Citrucel (sucrose) oral powder) polyethylene glycol 3350 17 gram 17 gm PO DAILY 08/06/19 03/21/24 History oral powder packet (Miralax) amlodipine 5 mg tablet 5 mg PO DAILY #90 tabs 11/22/23 03/21/24 Rx Patient History Medical History Nonsustained supraventricular tachycardia Benign colonic polyp Gallbladder polyp Mitral valve prolapse syndrome Rosacea Spinal stenosis Nonalcoholic fatty liver disease Mitral valve disorder History of femur fracture History of endometrial biopsy Surgical History History of reduction of open fracture History of colonoscopy History of section Family History Father Coronary heart disease Brother Dyslipidemia Prostate cancer Supraventricular tachycardia Denies family history of Ovarian cancer Myocardial infarction Breast cancer Lung cancer Colorectal cancer Social History Smoking Status: Never smoker Second Hand Exposure: Yes; Do You Dip or Chew Tobacco: No; Hx Alcohol Use: No Hx Substance Use: No Preferred Language: Sierra Leonean Communication Ability: Effective Visual Impairment: Limited Hearing Ability: Normal Turbo Operator Required: No Beliefs That Will Affect Care: None marital status: Current Living Situation: Family current occupational status: retired How many Children do You have: 2 Other Information That Helps Us Care for You: No Feels Safe at Home: Yes Childhood Exposure to Second-Hand Smoke: Yes caffeine: Yes Dental Care, Regularly: Yes Physical Activity Frequency: 3-4 Times per Week Seatbelt Use: always Sunscreen Use: No Assistive Devices: Glasses Physical Exam Physical Exam: On exam she appears comfortable. She is neurologically intact to testing lower extremities. Results & Data Vital Signs (Past 12 Hours) Vital Signs Temp Pulse Resp BP Pulse Ox O2 Del Method 03/22/24 07:24 36.8 C 52 L 16 149/77 H 94 Room Air
[2024-03-22] MEDS: traMADol HCL 50 MG TABLET PO PRN (12:43)
--- NOTE | 2024-03-22 15:08 | Hospitalist Progress Note ---
Date of Service March 22, 2024 Assessment & Plan (1) Closed L2 vertebral fracture: Plan: Patient sustained a mechanical fall found to have L2 vertebral body fracture.. There is only minimal loss of height, with no clear involvement of the posterior cortex or the posterior elements. There is no retropulsion of fragments. Head CT without acute abnormality Cervical spine CT without acute fracture or subluxation Thoracic spine CT without acute fracture or subluxation Lumbar spine CT revealed a suspected nondisplaced fracture through the L2 vertebrae Lumbar spine MRI w/o contrast as above Multimodal pain regimen: Acetaminophen 1000mg p.o. scheduled q8h pt has not requested opioids, has ordered ultram prn Miacalcin NS daily Daily lidocaine patch Orthopedics consulted, however recommended that the patient be seen by ortho- spine (no coverage this week) Case management consulted for discharge planning as patient will likely require rehab (2) HTN (hypertension): Plan: Continue amlodipine daily Plan Full code Regular diet VTE PPx: SCDs; hold chemical DVT PPx for 24 hours in the setting of acute fall/trauma Admission and Anticipated Discharge Date Admission Date: March 21, 2024 Subjective Patient with lumbar back pain worse with movement no radicular pain has not required opiate therapy at this time Physical Exam Physical Exam: pt is awake and alert, still with focal pain, no radicular pain. cardiac is regular, lungs are clear Results & Data Results & Data Vital Signs (Past 12 Hours) Vital Signs Temp Pulse Resp BP BP Pulse Ox O2 Del Method 03/22/24 14:28 98.1 F 60 16 166/76 H 92 Room Air 03/22/24 07:24 98.2 F 52 L 16 149/77 H 94 Room Air Laboratory Results review cbc review chemistry PG Care Time/CCT Total # of Minutes Spent Total Time Spent with Patient: Total time spent is greater than 50% in coordination of care (as documented) at patient's floor/unit and/or counseling patient: Coding Level of Care Code 11988 SUB INP/OBS CARE 2/35MIN Diagnoses Closed L2 vertebral fracture S32.029A HTN (hypertension) I10
[2024-03-23 07:11] LABS: Basophils # (auto) 0.04 K/uL (0.00-0.20); Basophils % (auto) 0.5 %; Eosinophils # (auto) 0.24 K/uL (0.00-0.50); Eosinophils % (auto) 3.2 %; Hematocrit (blood only) 40.1 % (37.0-47.0); Hemoglobin 13.5 g/dl (12.0-16.0); Immature Granulocytes # (auto) 0.02 K/uL (0.01-0.20); Immature Granulocytes % (auto) 0.3 %; Lymphocytes # (auto) 2.26 K/uL (1.20-3.40); Lymphocytes % (auto) 29.8 %; Mean Corpuscular Hemoglobin 30.1 pg (25.0-34.0); Mean Corpuscular Hgb Conc 33.7 g/dL (32.0-36.0); Mean Corpuscular Volume 89.3 fL (80.0-100.0); Mean Platelet Volume 9.7 fL (9.4-12.4); Monocytes # (auto) 0.58 K/uL (0.11-0.59); Monocytes % (auto) 7.6 %; Neutrophils # (auto) 4.45 K/uL (1.40-6.50); Neutrophils % (auto) 58.6 %; Platelet Count 194 K/uL (130-400); RDW Coefficient of Variation 12.2 % (11.5-14.5); RDW Standard Deviation 39.9 fL (36.4-46.3); Red Blood Count 4.49 M/uL (4.20-5.40); White Blood Count 7.59 K/ul (4.8-10.8)
[2024-03-23 07:36] LABS: BUN Creatinine Ratio 15.9 (10-20); Calcium 9.2 mg/dl (8.6-10.3); Creatinine Clr Calc Pharmacy 58.3 ml/min; Est GFR (African American) 78.3 ml/min; Est GFR (Non-African American) 67.6 ml/min; Potassium 4.1 mmol/L (3.5-5.1)
[2024-03-23] MEDS: METHYLCELLULOSE POWDER 454 GM JAR PO SCH (10:11)
[2024-03-23] MEDS: ONDANSETRON INJ 2 MG/ML 2 ML VIAL IV PRN (12:43)
--- NOTE | 2024-03-23 15:43 | Hospitalist Progress Note ---
Date of Service March 23, 2024 Assessment & Plan (1) Closed L2 vertebral fracture: Plan: Patient sustained a mechanical fall found to have L2 vertebral body fracture.. There is only minimal loss of height, with no clear involvement of the posterior cortex or the posterior elements. There is no retropulsion of fragments. Head CT without acute abnormality Cervical spine CT without acute fracture or subluxation Thoracic spine CT without acute fracture or subluxation Lumbar spine CT revealed a suspected nondisplaced fracture through the L2 vertebrae Lumbar spine MRI w/o contrast as above Multimodal pain regimen: Acetaminophen 1000mg p.o. scheduled q8h pt hastried ultram prn Miacalcin NS daily Daily lidocaine patch Orthopedics consulted,TSLO brace orded by ortho-spine Case management consulted for discharge planning as patient will likely require rehab (2) HTN (hypertension): Plan: Continue amlodipine daily Plan Full code Regular diet VTE PPx: SCDs; hold chemical DVT PPx for 24 hours in the setting of acute fall/trauma Admission and Anticipated Discharge Date Admission Date: March 21, 2024 Subjective Patient with lumbar back pain worse with movement no radicular pain has tried tramadol, ortho spine ordered tslo brace, pt was working with OT at my visit constipation usine miralax and citrucel Physical Exam Physical Exam: pt is awake and alert, still with focal pain, remains without radicular pain. cardiac is regular, lungs are clear Results & Data Results & Data Vital Signs (Past 12 Hours) Vital Signs Temp Pulse Resp BP Pulse Ox O2 Del Method 03/23/24 15:04 98.4 F 57 L 16 168/80 H 94 Room Air 03/23/24 08:20 60 03/23/24 06:39 98.1 F 47 L 16 156/77 H 92 Room Air PG Care Time/CCT Total # of Minutes Spent Total Time Spent with Patient: Total time spent is greater than 50% in coordination of care (as documented) at patient's floor/unit and/or counseling patient: Coding Level of Care Code 16329 SUB INP/OBS CARE 2/35MIN Diagnoses Closed L2 vertebral fracture S32.029A HTN (hypertension) I10
[2024-03-23] MEDS: SENNA 8.6 MG TAB PO ONE (16:27)
[2024-03-24 07:05] LABS: Basophils # (auto) 0.03 K/uL (0.00-0.20); Basophils % (auto) 0.4 %; Eosinophils # (auto) 0.24 K/uL (0.00-0.50); Hematocrit (blood only) 37.9 % (37.0-47.0); Immature Granulocytes # (auto) 0.02 K/uL (0.01-0.20); Immature Granulocytes % (auto) 0.2 %; Lymphocytes # (auto) 2.23 K/uL (1.20-3.40); Lymphocytes % (auto) 27.6 %; Mean Corpuscular Hemoglobin 30.2 pg (25.0-34.0); Mean Corpuscular Hgb Conc 34.3 g/dL (32.0-36.0); Mean Corpuscular Volume 88.1 fL (80.0-100.0); Mean Platelet Volume 9.9 fL (9.4-12.4); Monocytes # (auto) 0.64 K/uL (0.11-0.59); Monocytes % (auto) 7.9 %; Neutrophils # (auto) 4.93 K/uL (1.40-6.50); Neutrophils % (auto) 60.9 %; Platelet Count 194 K/uL (130-400); RDW Coefficient of Variation 12.3 % (11.5-14.5); RDW Standard Deviation 39.8 fL (36.4-46.3); White Blood Count 8.09 K/ul (4.8-10.8)
[2024-03-24 07:18] LABS: BUN Creatinine Ratio 14.5 (10-20); Creatinine Clr Calc Pharmacy 62.9 ml/min; Est GFR (African American) 85.9 ml/min; Est GFR (Non-African American) 74.1 ml/min; Potassium 4.2 mmol/L (3.5-5.1)
--- NOTE | 2024-03-24 15:46 | Hospitalist Progress Note ---
Date of Service March 24, 2024 Assessment & Plan (1) Closed L2 vertebral fracture: Plan: Patient sustained a mechanical fall found to have L2 vertebral body fracture.. There is only minimal loss of height, with no clear involvement of the posterior cortex or the posterior elements. There is no retropulsion of fragments. Head CT without acute abnormality Cervical spine CT without acute fracture or subluxation Thoracic spine CT without acute fracture or subluxation Lumbar spine CT revealed a suspected nondisplaced fracture through the L2 vertebrae Lumbar spine MRI w/o contrast as above Multimodal pain regimen: Acetaminophen 1000mg p.o. scheduled q8h pt hastried ultram prn Miacalcin NS daily Daily lidocaine patch Orthopedics consulted,TSLO brace orded by ortho-spine Case management consulted for discharge planning as patient will likely require rehab, no bed available at this time (2) HTN (hypertension): Plan: Continue amlodipine daily Plan Full code t VTE PPx: SCDs; Lovenox check urine culture 03/24 Admission and Anticipated Discharge Date Admission Date: March 21, 2024 Subjective Patient with nause and back pain worse with movement after PT on 03/24/24 continues without radicular pain has tried tramadol, not sure if this is part of nausea as typically is sensitive to medications ortho spine ordered tslo brace, this is ill fitting and discouraging to pt constipation using miralax and citrucel, adding some additional senna Physical Exam Physical Exam: pt is awake and alert, still with focal pain, remains without radicular pain. cardiac is regular, lungs are clear Results & Data Results & Data Vital Signs (Past 12 Hours) Vital Signs Temp Pulse Resp BP Pulse Ox O2 Del Method 03/24/24 15:26 98.2 F 56 L 18 146/79 H 93 Room Air 03/24/24 07:16 98.1 F 52 L 18 170/93 H 93 Room Air Laboratory Results Reviewed CBC reviewed chemistry PG Care Time/CCT Total # of Minutes Spent Total Time Spent with Patient: Total time spent is greater than 50% in coordination of care (as documented) at patient's floor/unit and/or counseling patient: Coding Level of Care Code 06308 SUB INP/OBS CARE 2/35MIN Diagnoses Closed L2 vertebral fracture S32.029A HTN (hypertension) I10
[2024-03-24] MEDS: SENNA 8.6 MG TAB PO ONE (16:54)
[2024-03-24] MEDS: ENOXAPARIN INJ 40 MG/0.4 ML SYR SQ SCH (18:48)
--- NOTE | 2024-03-25 11:29 | Discharge Summary ---
Date of Service March 25, 2024 Admission HPI Per Admitting Provider Patricia is an 78-year-old female with PMH of IBS, HLD, HTN, osteoporosis, adult situational stress disorder, and vitamin D deficiency. Patient presented on the morning of 03/21 after tripping on a step around 4 AM. She struck her hip on a ceramic tile, and endorsed severe lower back pain 10/10 immediately after falling. No head strike. No LOC. Patient was on the ground for approximately 15 minutes prior to EMS arrival. Patient did not take any medications prior to coming into the hospital; no morning medications. She denies any recent falls, or injury/trauma to the back/abdomen/pelvis. She was not feeling dizzy or lightheaded prior to fall. At time of admission, she does endorse 5/10 lower back pain, which he characterizes as a sharp, burning pain. The pain is constant and exacerbated with movements. No radiation down the legs. No numbness or tingling in the lower extremities. Patient denies saddle anesthesia. She reports that as long as she stays supine, the pain is tolerable. She reports that she is able to wiggle her toes, plantar/dorsiflex ankles, and bend the knees bilaterally. No loss of sensation or function of the lower extremities. No sick contacts. She does not use supplemental oxygen at baseline. Patient denies smoking, tobacco use, and recent alcohol use. Patient's son (Uday) is present at the bedside and provides additional history. She is bradycardic around 50 bpm at time of admission; vitals otherwise stable. ED course: Toradol 30 mg IM Oxycodone 10 mg p.o. Acetaminophen 1000 mg p.o. ROS: Patient endorses severe lower back pain that is exacerbated by movements, as well as nausea. Patient denies fever, chills, night-sweats, dizziness/lightheadedness prior to fall, headache, chest pain, chest pressure, chest palpitations, SOB, pleuritic CP, cough, abdominal pain, vomiting, diarrhea, change in urinary bowel habits, burning with urination, blood in the urine or stool, saddle anesthesia, or numbness/tingling/pain in the lower extremities. Principal Diagnosis Nondisplaced L2 fracture due to mechanical fall Discharge Exam General-alert and oriented x3, no fever, no chills HEENT-head atraumatic and normocephalic, pupils equal and reactive to light, extraocular muscles intact Neck-no lymphadenopathy or thyromegaly, trachea midline Chest-clear to auscultation. No rales, wheezing or rhonchi Cardiac-regular rate and rhythm, normal S1 and S2 Abdomen-normal bowel sounds, no hepatosplenomegaly Extremities-no cyanosis, clubbing, or edema Neuro-cranial nerves II through XII intact, motor and sensory function within normal limits, strength symmetrical, no focal deficits Psych-normal affect, normal mood Discharge Data Allergies Allergy/AdvReac Type Severity Reaction Status Date / Time almond Allergy Severe THROAT Verified 11/14/23 13:34 CLOSES COVID-19 (SARS-CoV-2) Allergy Severe Verified 11/14/23 13:34 vaccine, alexis Iodinated Contrast Media Allergy Severe THROAT Verified 11/14/23 13:34 CLOSES Penicillins Allergy Intermediate Hives Verified 11/14/23 13:34 Sulfa (Sulfonamide Allergy Intermediate Hives Verified 11/14/23 13:34 Antibiotics) ciprofloxacin Allergy Unknown CAN'T Verified 11/14/23 13:34 REMEMBER ramipril Allergy Unknown CAN'T Verified 11/14/23 13:34 REMEMBER alendronate sodium AdvReac Intermediate abdominal Verified 11/14/23 13:34 pain, fever, [place]WRENCE escitalopram [From Lexapro] AdvReac Intermediate INVOLUNTARY Verified 11/14/23 13:34 MUSCLE SPASMS losartan AdvReac Intermediate GI upset Verified 11/14/23 13:34 Uqigpqy-QRE-ClW Reductase AdvReac Intermediate MUSCLE Verified 11/14/23 13:34 Inhibitor PAIN/CRAMPS [Jjbgspu-Yov-Elx Reductase Inhibitor] [place]CH [place] SAP Allergy Intermediate SWELLING Uncoded 11/14/23 13:34 AT SITE OF PINE NEEDLE PRICK. covid vaccines AdvReac Severe Uncoded 11/14/23 13:34 Consultations 03/21/24 05:45 ED Decision to Admit Stat 03/21/24 06:24 Consult Orthopedic Surgery Routine Ordered Studies 03/21/24 04:43 CT cervical spine wo con Stat CT head/brain wo con Stat CT lumbar spine wo con Stat CT thoracic spine wo con Stat 03/21/24 15:39 MRI Lumbar Spine [MR lumbar spine wo con] Stat Hospital Course (1) Closed L2 vertebral fracture: Patient sustained a mechanical fall found to have L2 vertebral body fracture.. There is only minimal loss of height, with no clear involvement of the posterior cortex or the posterior elements. There is no retropulsion of fragments. Head CT without acute abnormality Cervical spine CT without acute fracture or subluxation Thoracic spine CT without acute fracture or subluxation Lumbar spine CT revealed a suspected nondisplaced fracture through the L2 vertebrae Lumbar spine MRI w/o contrast as above Multimodal pain regimen: Acetaminophen 1000mg p.o. scheduled q8h pt hastried ultram prn Miacalcin NS daily Daily lidocaine patch Orthopedics consulted,TSLO brace orded by ortho-spine (2) HTN (hypertension): Stable continue amlodipine daily Plan [facility] today[facility] Total Time Total Time Spent Total Time Spent (In Minutes): 45 minutes Discharge Plan Discharge Items Patient Disposition: Transfer Inpatient Rehab Fac Reason For Visit: FALL, SEVERE LOWER BACK PAIN, AMBULATORY DYSFUNCTI Discharge Diagnosis: Nondisplaced L2 fracture, mechanical fall Condition on Discharge: Good Activity: Resume your previous activity Non-emergency contact: Primary Care Provider Call non-emergency contact if: your symptoms worsen Follow-up/Referrals: Alexandr Damian DO [Primary Care Provider] - Diet: Regular and Heart Healthy Addtl Attending Provider Instructions: Wear back brace per orthopedic instructions Pending Studies at Discharge: No Stand-Alone Forms: [facility] Skilled Items Patient informed of condition?: Yes DNR: No Discharge Level of Care: Acute rehab Communicable Disease: No Discharge Prognosis: Stable Lines: None Urinary Catheter: No Medications and DC Order Prescriptions: New cyclobenzaprine 5 mg Tablet 5 mg PO BID PRNQty: 0 0RF tramadol 50 mg Tablet 50 mg PO Q6H PRNQty: 0 0RF calcitonin (salmon) 200 unit/actuation [place],Non-Aerosol 1 spray WALDO DAILY Qty: 0 0RF Continued amlodipine 5 mg tablet 5 mg PO DAILY Qty: 90 3RF Citrucel (sucrose) powder 1 tbs PO DAILY polyethylene glycol 3350 [Miralax] 17 gram powder in packet 17 gm PO DAILY cholecalciferol (vitamin D3) 5,000 unit tablet 5,000 units PO DAILY Discharge Orders: Discharge Order (Routine); Ordered 03/25/24 Ordered By: Keven Box Admission Data Admit Date/Time: 03/21/24 15:53 Attending Provider: Keven Box Admit Provider: Mike Marquez Primary Care Provider: Alexandr Damian Other Providers: Stormy Villa; Keegan Younger; [facility] Coding Level of Care Code 42628 INP/OBS DISCH >30 MIN Diagnoses Closed L2 vertebral fracture S32.029A HTN (hypertension) I10
[2024-03-25] MEDS: CYCLOBENZAPRINE HCL 5 MG TAB PO PRN (11:32)
== END 2024-03-25 14:01 | DRG 552 ==
LOC: ED 04:40 → 3N 15:53 → SUATTDRO 15:53 → 3N 20:36